=== PATIENT | female | born 1995 | race Caucasian/White ===

== ENCOUNTER 2016-06-15 03:07 | Emergency (ER) | payer OTHER | END 2016-06-15 06:48 | disposition home or self-care (01) | LOC: CED 03:07 | DX: T40.1X1A Poisoning by heroin, accidental (unintentional), initial encounter (principal); T40.3X1A Poisoning by methadone, accidental (unintentional), initial encounter; F32.9 Major depressive disorder, single episode, unspecified; F41.9 Anxiety disorder, unspecified; F17.210 Nicotine dependence, cigarettes, uncomplicated | CPT/HCPCS: 84703; 96361; 96374; 99284; J2405 ==